=== PATIENT | female | born 1960 | race American Indian/Alaskan Native ===

== ENCOUNTER 2020-02-04 09:35 | Outpatient (CLI) | payer OTHER ==
--- NOTE | 2020-02-05 08:20 | Mammography Report ---
DIGITAL SCREENING MAMMOGRAM WITH CAD, 02/04/2020 INDICATION: Routine screening mammography. TECHNIQUE: Digital bilateral 2D mammography was obtained in the craniocaudal and mediolateral obliq ue projections. This examination was interpreted with the benefit of Computer-Aided Detection analysi s. COMPARISON: None available. FINDINGS: Breast Density: The breasts are almost entirely fatty. There is no evidence of dominant mass, suspicious calcifications or architectural distortion in the l eft breast. In the 9-10:00 position middle depth of the right breast is an indeterminate nodule versu s node measuring 9.5 x 6.1 mm. No other significant abnormality of the right breast. IMPRESSION: Indeterminate right breast nodule versus node. A limited right breast ultrasound is recommended for f urther evaluation. Follow up recommendation: Ultrasound Category 0: Incomplete. Needs additional imaging evaluation and/or prior mammograms for comparison. A "normal" or negative report should not discourage follow up or biopsy of a clinically significant f inding. A written summary of these findings will be mailed to the patient. The patient will be entered into a mammography reporting system which will generate a reminder letter for the patient's next appointmen t at the appropriate interval. [employer] recommends yearly mammograms starting at age 40 and continuing as l rojelio as a woman is in good health. Breast MRI is recommended for women with an approximate 20-25% or greater lifetime risk of breast cancer, including women with a strong family history of breast or ova bang cancer or who have been treated for Hodgkin's disease. Signer Name: Leon Cardona MD Signed: 02/05/2020 8:16 AM Workstation Name: [employer]
== END 2020-02-04 09:36 | disposition home or self-care (01) ==
LOC: MAMMO 09:35
PROVIDERS: ATTEND Internal Medicine
DX: Z12.31 Encounter for screening mammogram for malignant neoplasm of breast (principal)
CPT/HCPCS: 77067

== ENCOUNTER 2020-04-08 10:36 | Outpatient (CLI) | payer OTHER ==
--- NOTE | 2020-04-08 11:42 | Ultrasound Report ---
EXAMINATION: Right Limited Breast Ultrasound, 04/08/2020 INDICATION: Abnormal screening mammogram. Screening recall of the right breast for a right breast nodule. COMPARISON: Screening mammogram, 02/04/2020 FINDINGS: Targeted ultrasound evaluation was performed of the area of interest. Sonographic evaluati on of the right breast at the 9:00 position 10 cm from the nipple demonstrates an oval 8 mm intramamm yvonne lymph node. This lymph node demonstrates a normal morphology with a preserved fatty hilum. This c orresponds to the density seen on the recent mammogram. There is no evidence of suspicious solid mass or shadowing. IMPRESSION: Follow up recommendation: Routine yearly BI-RADS Category 2: Benign. Intramammary lymph node as described representing a benign finding. A normal or "negative" report should not preclude biopsy or follow-up of a clinically suspicious find ing. Signer Name: Jessica Morocho MD Signed: 04/08/2020 11:37 AM Workstation Name: [email or web address]
== END 2020-04-08 10:37 | disposition home or self-care (01) ==
LOC: US 10:36
PROVIDERS: ATTEND Family Medicine Adult Medicine
DX: R92.8 Other abnormal and inconclusive findings on diagnostic imaging of breast (principal)

== ENCOUNTER 2021-10-20 10:45 | Outpatient (CLI) | payer OTHER | END 2021-10-20 10:46 | disposition home or self-care (01) | LOC: MAMMO 10:45 | PROVIDERS: ATTEND Internal Medicine | DX: Z12.31 Encounter for screening mammogram for malignant neoplasm of breast (principal) | CPT/HCPCS: 77067 ==